=== PATIENT | male | born 1945 | race Caucasian/White ===

== ENCOUNTER 2022-02-25 17:59 | Emergency (ER) | payer OTHER, SELFPAY ==
--- NOTE | ~2022-02-25 | XR_ITS ---
EXAMINATION: CHEST AND LEFT RIBS, LEFT SHOULDER, LEFT HAND CLINICAL INFORMATION: Fall with pain COMPARISON: None TECHNIQUE: Single view chest with 4 additional views left RIBS, 4 views left shoulder, 3 views left hand FINDINGS: The heart and pulmonary vessels appear normal. Bibasilar atelectasis is seen. Degenerative changes are seen in the spine with biconvex thoracolumbar scoliosis. The ribs appear intact. No rib fractures. No pneumothorax. No significant bone, joint or soft tissue abnormality is seen involving the left shoulder. There are degenerative changes at the DIP joints in the hand. Minimal degenerative changes present at the first carpal metacarpal joint along with the radiocarpal joint. No fractures are seen. Vascular calcifications are present. XR/XR hand wrist LT IMPRESSION: No evidence of acute traumatic injury involving the chest, ribs, left shoulder or left hand. Degenerative changes in the hand as described above.
--- NOTE | ~2022-02-25 | XR_ITS ---
EXAMINATION: CHEST AND LEFT RIBS, LEFT SHOULDER, LEFT HAND CLINICAL INFORMATION: Fall with pain COMPARISON: None TECHNIQUE: Single view chest with 4 additional views left RIBS, 4 views left shoulder, 3 views left hand FINDINGS: The heart and pulmonary vessels appear normal. Bibasilar atelectasis is seen. Degenerative changes are seen in the spine with biconvex thoracolumbar scoliosis. The ribs appear intact. No rib fractures. No pneumothorax. No significant bone, joint or soft tissue abnormality is seen involving the left shoulder. There are degenerative changes at the DIP joints in the hand. Minimal degenerative changes present at the first carpal metacarpal joint along with the radiocarpal joint. No fractures are seen. Vascular calcifications are present. XR/XR ribs LT min 3V w CXR1V IMPRESSION: No evidence of acute traumatic injury involving the chest, ribs, left shoulder or left hand. Degenerative changes in the hand as described above.
--- NOTE | ~2022-02-25 | XR_ITS ---
EXAMINATION: CHEST AND LEFT RIBS, LEFT SHOULDER, LEFT HAND CLINICAL INFORMATION: Fall with pain COMPARISON: None TECHNIQUE: Single view chest with 4 additional views left RIBS, 4 views left shoulder, 3 views left hand FINDINGS: The heart and pulmonary vessels appear normal. Bibasilar atelectasis is seen. Degenerative changes are seen in the spine with biconvex thoracolumbar scoliosis. The ribs appear intact. No rib fractures. No pneumothorax. No significant bone, joint or soft tissue abnormality is seen involving the left shoulder. There are degenerative changes at the DIP joints in the hand. Minimal degenerative changes present at the first carpal metacarpal joint along with the radiocarpal joint. No fractures are seen. Vascular calcifications are present. XR/XR shoulder LT min 2V IMPRESSION: No evidence of acute traumatic injury involving the chest, ribs, left shoulder or left hand. Degenerative changes in the hand as described above.
--- NOTE | ~2022-02-25 | CT_ITS ---
EXAMINATION: CT CHEST, ABDOMEN AND PELVIS WITHOUT CONTRAST CLINICAL INFORMATION: Status post fall with left-sided chest wall pain and left upper quadrant/abdominal pain COMPARISON: No pertinent prior studies are available for comparison. TECHNIQUE: Multidetector volumetric imaging was performed from the thoracic inlet through the pubic symphysis without IV contrast. Sagittal and coronal reformatted images were obtained on the technologist's workstation. This CT examination was performed using dose optimization techniques as appropriate, variously including the following: *Automated exposure control *Adjustment of mA and/or kV according to patient size (this includes techniques or standardized protocols for targeted exams where dose is matched to indication/reason for exam; i.e. extremities or head) *Use of iterative reconstruction technique DLP: 931 mGy-cm FINDINGS: CHEST: Lung: A few punctate nodules/granulomas are seen. The lungs are otherwise clear without focal opacity or concerning nodule. Mediastinum: The heart size is normal. Coronary calcifications are present. The central vascular structures are unremarkable. No hilar or mediastinal lymphadenopathy. Pericardium/Pleura: No significant effusion. No pleural mass or thickening. Chest Wall/Axilla: Unremarkable. No chest wall hematoma or rib fractures are seen. ABDOMEN/PELVIS: Peritoneal Space: No significant free air or free fluid identified. Liver, Gallbladder, Biliary Tree: The liver is normal in size, shape, and attenuation. Multiple benign simple water density cysts are present in the liver. No focal worrisome solid hepatic lesion or biliary ductal dilatation is present. The gallbladder contains small layering gallstones without gallbladder wall thickening, or obvious pericholecystic inflammatory changes. Pancreas: Unremarkable Spleen: Unremarkable Adrenal Glands: Unremarkable Kidneys and Ureters: The right kidney is absent. The left kidney is large measuring 15.7 cm in greatest length. A large completely exophytic cyst arises from the upper pole the left kidney measuring 9.2 cm. Other smaller benign Bosniak class I cysts are present as well aerated no solid renal masses are seen. At the lower pole there is a nonobstructing 7 mm calculus seen which measures 560 Hounsfield units and is 15 cm from the posterior axillary line. No other stones are seen. No hydronephrosis. Bladder: Unremarkable Gastrointestinal Tract: The small and large bowel are unremarkable. The appendix is is not seen but there is no evidence of appendicitis. Abdominal Wall: Small left inguinal hernia containing only fat Lymph Nodes: No retroperitoneal lymphadenopathy. Vascular: The aorta appears unremarkable.. The IVC appears unremarkable. PELVIC VISCERA: There is moderate enlargement of the prostate. The seminal vesicles appear normal. OSSEUS STRUCTURES: Mild degenerative changes are noted throughout the spine. No bony destructive lesions are seen. CT/CT abdomen pelvis wo IV con IMPRESSION: 1. No evidence of an acute traumatic injury in the chest, abdomen and pelvis. 2. The right kidney is absent and left kidney is large with multiple Bosniak class I cysts which need no further imaging or follow-up there is a nonobstructing 7 mm calculus in the left kidney. 3. Moderate BPH 4. Cholelithiasis without cholecystitis 5. Multiple benign liver cysts. Fleischner guidelines were followed.
[2022-02-25 19:04] VITALS: BP 156/82; PULSE 73; RESP 18; TEMP 37; O2SAT 98; BMI 36.1
--- NOTE | 2022-02-25 19:10 | ECG_ITS ---
Test Reason : FALL Blood Pressure : / mmHG Vent. Rate : 080 BPM Atrial Rate : 080 BPM P-R Int : 232 ms QRS Dur : 098 ms QT Int : 372 ms P-R-T Axes : -06 -11 030 degrees QTc Int : 429 ms Sinus rhythm with 1st degree A-V block with occasional Premature ventricular complexes Otherwise normal ECG No previous ECGs available Referred By: Generic ED Physician Electronically Signed By:NATALIE VUONG MD
[2022-02-25 19:46] LABS: MANUAL DIFF FLAG NO
[2022-02-25 19:47] LABS: Basophils Absolute Auto 0.1 X10*3/uL (0.0-0.2); Basophils Percent Auto 0.8 % (0-2); Eosinophils Absolute Auto 0.3 X10*3/uL (0.0-0.4); Eosinophils Percent Auto 2.6 % (0-4); Hematocrit 51.2 % (42.0-52.0); Hemoglobin 16.7 g/dl (14.0-18.0); Imm Gran Abs Auto 0.12 X10*3/uL (0.00-0.03); Imm Gran Pct Auto 1.1 % (0.0-0.4); Lymphocytes Absolute Auto 2.6 X10*3/uL (1.2-4.9); Lymphocytes Percent Auto 24.4 % (20-40); Mean Corpuscular HGB Conc 32.6 g/dl (31.0-36.0); Mean Corpuscular Hemoglobin 30.4 pg (27.0-33.0); Mean Corpuscular Volume 93.1 fL (80.0-98.0); Mean Platelet Volume 9.9 fL (9.4-12.4); Monocytes Percent Auto 9.6 % (2-11); Neutrophils Absolute Auto 6.5 x10*3/uL (2.0-8.3); Neutrophils Percent Auto 61.5 % (45-73); Platelet Count 258 X10*3/uL (160-400); White Blood Count 10.5 X10*3/uL (4.8-10.8)
[2022-02-25 20:01] LABS: Alanine Aminotransferase 22 U/L (0-40); Albumin Level 3.7 g/dL (3.5-5.0); Alkaline Phosphatase 85 U/L (39-117); Anion Gap 13 (12-20); Aspartate Amino Transferase 22 U/L (5-37); Bilirubin Total 0.7 mg/dL (0.0-1.0); Blood Urea Nitrogen 18 mg/dL (9-16); Calcium 9.3 mg/dL (8.4-10.2); Carbon Dioxide 23 mmol/L (22-29); Chloride 107 mmol/L (96-108); Creatinine Clr Calc Pharmacy 52.4; Estimated Glomerular Filt Rate 45; Glucose Random 120 mg/dL (60-115); Sodium 139 mmol/L (135-145); Total Protein 6.9 g/dL (6.5-8.0)
[2022-02-25 20:08] LABS: Troponin-I High Sensitivity 8.8 ng/L (<3.5-35.0)
[2022-02-25] MEDS: 0.9 % Sodium Chloride 500 ML 900 ML IV (20:38)
[2022-02-25 20:59] VITALS: BP 191/86; PULSE 83; RESP 18; TEMP 35.9; O2SAT 95
--- NOTE | 2022-02-25 21:08 | ED.FALL ---
HPI - Fall General Chief Complaint: Fall Stated Complaint: fall/rib pain/arm INJ Time Seen by Provider: 02/25/22 20:12 Source: patient Mode of arrival: ambulatory Limitations: no limitations History of Present Illness HPI Narrative: 76-year-old male with a history of high blood pressure, congestive heart failure, renal cancer status post nephrectomy with a solitary kidney with preserve renal function here with reports of trip and fall. Patient tells me he was walking home from dinner when he tripped falling on his left side. He denies hitting his head or loss of consciousness. Patient tells me that he struck his left ribs and abdomen. He also caught himself with his left upper extremity. He denies neck pain, back pain, headache, vomiting, vision changes. Patient is not on any anticoagulation Related Data Previous Rx's Medication Instructions Recorded lidocaine 5 % topical patch 1 patch TOPICAL DAILY #15 ea 02/25/22 (Lidoderm) oxycodone 5 mg tablet 5 mg PO Q8H PRN #5 tab 02/25/22 Allergies Allergy/AdvReac Type Severity Reaction Status Date / Time No Known Allergies Allergy Verified 02/25/22 19:08 Review of Systems Review of Systems: Yes all other systems are reviewed and are negative Constitutional: Constitutional: Reports no additional constitutional complaints, Denies body ache(s), Denies chills, Denies fever(s), Denies headache(s) and Denies weakness Eyes: Eyes: Reports no additional eye complaints and Denies change in vision ENT: Reports system reviewed and no additional complaints, except as documented, Denies dizziness, Denies headache(s), Denies nasal congestion, Denies nasal discharge and Denies neck pain Cardiovascular: Cardiovascular: Reports no additional cardiovascular complaints, Reports chest pain, Denies leg edema and Denies dyspnea Respiratory: Respiratory: Reports no additional respiratory complaints, Denies cough and Denies dyspnea Gastrointestinal: Gastrointestinal: Reports no additional gastrointestinal complaints, Reports abdominal pain, Denies diarrhea, Denies nausea and Denies vomiting Genitourinary: Genitourinary: Denies urinary incontinence Musculoskeletal: Musculoskeletal: Reports no additional musculoskeletal complaints, Denies back pain, Denies arthralgias, Denies joint swelling, Denies neck pain, Denies numbness and Denies tingling Integumentary/Breasts: Skin/Breast: Reports system reviewed and no additional complaints, except as docu and Denies rash Neurologic: Reports system reviewed and no additional complaints, except as documented, Denies Abnormal speech present, Denies dizziness, Denies headache(s), Denies numbness, Denies tingling and Denies weakness PMFSH Past Medical History Attestation statement: The following information was validated with the patient. Source: old records reviewed and nursing notes reviewed Social History Social History Advance Directives: No Advance Directives Information Provided: No Physical Exam Vital Signs: Vital Signs: Last Vital Signs Temp 96.6 F L 02/25/22 20:59 Pulse 74 02/25/22 22:14 Resp 16 02/25/22 22:14 BP 156/87 H 02/25/22 22:14 Pulse Ox 99 02/25/22 22:14 BMI result Body Mass Index 36.1 Const: General: cooperative, healthy appearing, comfortable and no acute distress Orientation/consciousness: patient oriented x3 Limitations: no limitations HEENT: Head: Yes normal to inspection Ears: hearing grossly normal bilaterally and TM's normal bilaterally General nose exam: Normal external nose present Face and sinus: Yes normal facial exam Mouth: Normal oral and palatal mucosa present Throat: Yes posterior oropharynx normal and Yes tonsils normal Eyes: General: appearance normal, both eyes and all related structures Pupils: Equal, round and reactive pupils present Neck: Other: No cervical midline tenderness, step-offs deformities Neck: Yes normal visual inspection and Yes full ROM Chest: Chest palpation & inspection: normal inspection of the chest and tenderness (To the left ribs there is tenderness. There is no ecchymosis or crepitus) Resp: Effort & Inspection: normal respiratory effort Auscultation: clear to auscultation bilaterally Cardio: Rate: regular rate Rhythm: regular rhythm Peripheral pulses: Peripheral pulses 2+ throughout GI: Inspection: Yes normal to inspection Palpation (GI): Soft to palpation and Tenderness to palpation present (GI) (Left upper quadrant tenderness) Auscultation: normal bowel sounds Back/Spine/Pelvis: Thoracic/Lumbar Spine: thoracic and lumbar spine normal to inspection Skin: General skin exam: no rashes or lesions noted Neuro: General: patient oriented x3, moves all extremities, no focal motor deficits and normal sensation to monofilament Cranial nerves: Yes CN's II-XII intact bilaterally, Yes Equal, round and reactive pupils present, Yes Bilaterally intact EOM present, Yes Nystagmus not present, Yes Normal facial strength present and Yes Midline tongue present Cognition (Neuro): normal cognition Speech: No Abnormal speech present Gait exam (Neuro): Normal gait present Motor exam (neuro): 5/5 motor strength present throughout Sensory Exam: Normal double simultaneous stimulation for sensation Extrem: Other: Tenderness to the left dorsal wrist with full range of motion Tenderness to the left anterior shoulder with full range of motion. Neurovascularly intact distally. General: Yes normal to inspection Course Course Course Narrative: 76-year-old male here with reports of left ribs and abdomen pain after mechanical fall just prior to arrival. X-rays were ordered from triage and are unavailable for review. Patient also had complaints of left upper extremity pain after the fall. It is unclear why but the patient had labs ordered from triage which show a BUN of 18 and a creatinine of 1.54. No previous labs for comparison. Patient denies any underlying history of chronic kidney disease. He does have a solitary kidney. Will place PIV and give 500 mL of normal saline due to underlying congestive heart failure history. Will plan to recheck patient's main creatinine after this. Patient also had a troponin which was done at triage unclear why is he denied any pre fall symptoms of chest pain or shortness of breath palpitations. His troponin was 8.8 which [address] it in the indeterminate range. He has no complaints. His EKG shows no ischemic changes. Plan to repeat. Will check CT abdomen and pelvis and CT chest Reevaluation(s) Reevaluation #1: CT chest/abdomen/pelvis show no acute finding. Gallstones but no evidence of acute cholecystitis. No right upper quadrant pain on exam. Rib x-rays are negative. Hand, wrist and shoulder x-ray show no acute finding. Patient was informed of his imaging results. His repeat creatinine is 1.50 and his BUN is 19. We have no previous to compare to so I do not know what his baseline is. Therefore informed the patient of his labs. He tells me he has a appointment tomorrow with his urologist and he will have repeat labs done. I instructed him that he should drink lots of fluids. He should avoid any anti-inflammatories until his repeat labs are done. His repeat troponin is flat. Reviewed worrisome signs and symptoms of when to return to the emergency department. Comfortable discharge home. Time: 23:45 MDM - Fall MDM Narrative Medical decision making narrative: Contusion, fracture, intra-abdominal injury Medical Records Attestation: I reviewed the patient's medical records. Lab Data Attestation: I reviewed the patient's lab results. Result diagrams: 02/25/22 19:38 02/25/22 22:37 Labs: Lab Results 02/25/22 02/25/22 02/25/22 Range/Units 19:38 19:38 19:38 WBC 10.5 (4.8-10.8) X10*3/uL RBC 5.50 (4.60-5.80) X10*6/uL Hgb 16.7 (14.0-18.0) g/dl Hct 51.2 (42.0-52.0) % MCV 93.1 (80.0-98.0) fL MCH 30.4 (27.0-33.0) pg MCHC 32.6 (31.0-36.0) g/dl RDW 14.0 (11.0-16.0) % Plt Count 258 (160-400) X10*3/uL MPV 9.9 (9.4-12.4) fL Immature Gran % (Auto) 1.1 H (0.0-0.4) % Neut % (Auto) 61.5 (45-73) % Lymph % (Auto) 24.4 (20-40) % [place] % (Auto) 9.6 (2-11) % Eos % (Auto) 2.6 (0-4) % Baso % (Auto) 0.8 (0-2) % Lymph # (Auto) 2.6 (1.2-4.9) X10*3/uL [place] # (Auto) 1.0 (0.1-1.2) X10*3/uL Eos # (Auto) 0.3 (0.0-0.4) X10*3/uL Baso # (Auto) 0.1 (0.0-0.2) X10*3/uL Abs Immat Gran (auto) 0.12 H (0.00-0.03) X10*3/uL Absolute Neuts (auto) 6.5 (2.0-8.3) x10*3/uL Absolute Nucleated RBC 0.000 (0.0-0.012) X10*3/uL Nucleated RBC % (auto) 0.0 (0.0-0.2) /100WBC Sodium 139 (135-145) mmol/L Potassium 4.0 (3.3-5.1) mmol/L Chloride 107 (96-108) mmol/L Carbon Dioxide 23 (22-29) mmol/L Anion Gap 13 (12-20) BUN 18 H (9-16) mg/dL Creatinine 1.52 H (0.5-1.4) mg/dL Estim Creat Clear Calc 52.4 Estimated GFR 45 Random Glucose 120 H (60-115) mg/dL Calcium 9.3 (8.4-10.2) mg/dL Total Bilirubin 0.7 (0.0-1.0) mg/dL AST 22 (5-37) U/L ALT 22 (0-40) U/L Alkaline Phosphatase 85 (39-117) U/L Troponin I High Sens 8.8 (<3.5-35.0) ng/L Total Protein 6.9 (6.5-8.0) g/dL Albumin 3.7 (3.5-5.0) g/dL 02/25/22 02/25/22 Range/Units 22:37 22:37 WBC (4.8-10.8) X10*3/uL RBC (4.60-5.80) X10*6/uL Hgb (14.0-18.0) g/dl Hct (42.0-52.0) % MCV (80.0-98.0) fL MCH (27.0-33.0) pg MCHC (31.0-36.0) g/dl RDW (11.0-16.0) % Plt Count (160-400) X10*3/uL MPV (9.4-12.4) fL Immature Gran % (Auto) (0.0-0.4) % Neut % (Auto) (45-73) % Lymph % (Auto) (20-40) % [place] % (Auto) (2-11) % Eos % (Auto) (0-4) % Baso % (Auto) (0-2) % Lymph # (Auto) (1.2-4.9) X10*3/uL [place] # (Auto) (0.1-1.2) X10*3/uL Eos # (Auto) (0.0-0.4) X10*3/uL Baso # (Auto) (0.0-0.2) X10*3/uL Abs Immat Gran (auto) (0.00-0.03) X10*3/uL Absolute Neuts (auto) (2.0-8.3) x10*3/uL Absolute Nucleated RBC (0.0-0.012) X10*3/uL Nucleated RBC % (auto) (0.0-0.2) /100WBC Sodium 141 (135-145) mmol/L Potassium 4.2 (3.3-5.1) mmol/L Chloride 109 H (96-108) mmol/L Carbon Dioxide 25 (22-29) mmol/L Anion Gap 11 L (12-20) BUN 19 H (9-16) mg/dL Creatinine 1.50 H (0.5-1.4) mg/dL Estim Creat Clear Calc 53.1 Estimated GFR 46 Random Glucose 116 H (60-115) mg/dL Calcium 8.9 (8.4-10.2) mg/dL Total Bilirubin (0.0-1.0) mg/dL AST (5-37) U/L ALT (0-40) U/L Alkaline Phosphatase (39-117) U/L Troponin I High Sens 8.9 (<3.5-35.0) ng/L Total Protein (6.5-8.0) g/dL Albumin (3.5-5.0) g/dL Imaging Data Left hand/wrist/shoulder/ribs xray: Attestation: I personally reviewed and interpreted this imaging study as follows: Radiologist's impression: FINDINGS: The heart and pulmonary vessels appear normal. Bibasilar atelectasis is seen. Degenerative changes are seen in the spine with biconvex thoracolumbar scoliosis. The ribs appear intact. No rib fractures. No pneumothorax. No significant bone, joint or soft tissue abnormality is seen involving the left shoulder. There are degenerative changes at the DIP joints in the hand. Minimal degenerative changes present at the first carpal metacarpal joint along with the radiocarpal joint. No fractures are seen. Vascular calcifications are present.? XR/XR hand wrist LT IMPRESSION: No evidence of acute traumatic injury involving the chest, ribs, left shoulder or left hand. Degenerative changes in the hand as described above.? CT scan - abdomen: Attestation: I personally reviewed and interpreted this imaging study as follows: Radiologist's impression: ABDOMEN/PELVIS: Peritoneal Space: No significant free air or free fluid identified. Liver, Gallbladder, Biliary Tree: The liver is normal in size, shape, and attenuation. Multiple benign simple water density cysts are present in the liver. No focal worrisome solid hepatic lesion or biliary ductal dilatation is present. The gallbladder contains small layering gallstones without? gallbladder wall thickening, or obvious pericholecystic inflammatory changes. Pancreas: Unremarkable Spleen: Unremarkable Adrenal Glands: Unremarkable Kidneys and Ureters: The right kidney is absent. The left kidney is large measuring 15.7 cm in greatest length. A large completely exophytic cyst arises from the upper pole the left kidney measuring 9.2 cm. Other smaller benign Bosniak class I cysts are present as well aerated no solid renal masses are seen. At the lower pole there is a nonobstructing 7 mm calculus seen which measures 560 Hounsfield units and is 15 cm from the posterior axillary line. No other stones are seen. No hydronephrosis. Bladder: Unremarkable Gastrointestinal Tract: The small and large bowel are unremarkable. The appendix is is not seen but there is no evidence of appendicitis. Abdominal Wall: Small left inguinal hernia containing only fat Lymph Nodes: No retroperitoneal lymphadenopathy. Vascular: The aorta appears unremarkable.. The IVC appears unremarkable. PELVIC VISCERA: There is moderate enlargement of the prostate. The seminal vesicles appear normal. OSSEUS STRUCTURES: Mild degenerative changes are noted throughout the spine. No bony destructive lesions are seen. CT scan - chest: Attestation: I personally reviewed and interpreted this imaging study as follows: Radiologist's impression: CHEST: Lung: A few punctate nodules/granulomas are seen. The lungs are otherwise clear without focal opacity or concerning nodule. Mediastinum: The heart size is normal. Coronary calcifications are present. The central vascular structures are unremarkable. No hilar or mediastinal lymphadenopathy. Pericardium/Pleura: No significant effusion. No pleural mass or thickening. Chest Wall/Axilla: Unremarkable. No chest wall hematoma or rib fractures are seen ECG Data Attestation: I personally reviewed and interpreted this ECG as follows: ECG interpretation date: 02/25/22 ECG interpretation time: 19:12 Interpretation: Sinus rhythm with a first-degree AV block with occasional PVCs with a rate of 80, normal QRS, normal QT Discharge Plan Discharge Clinical Impression: KIMBER (acute kidney injury), Chest wall contusion, Contusion of arm, left, Left wrist sprain Patient Disposition: Home, Self-Care Instructions: Acute Kidney Injury (DC), Contusion in Adults (ED), Wrist Sprain (ED) Additional Instructions: Have your kidney function checked within one week. Your BUN was 19 and your creatinine 1.50 Ice to the affected areas NO motrin until repeat kindey function. Tylenol for pain or oxycodone for severe pain Prescriptions: New oxycodone 5 mg tablet 5 mg PO Q8H PRN (Reason: pain) Qty: 5 0RF lidocaine [Lidoderm] 5 % adhesive patch,medicated 1 patch topical DAILY Qty: 15 0RF Rx Instructions: leave on most painful area for up to 12 hrs Referrals: Fannie Nelson MD [Primary Care Provider] - 5 days (For repeat kidney function ) Interventions: ED Discharge Assessment Last Done: 02/25/22 23:58 Discharge Date/Time: 02/25/22 23:59
[2022-02-25 21:29] VITALS: RESP 20
[2022-02-25] MEDS: ondansetron HCL 4 MG/2 ML VIAL IVPUSH (21:29)
[2022-02-25] MEDS: Morphine Sulfate 4 MG/ML CARTRIDGE IVPUSH (21:29)
[2022-02-25 22:14] VITALS: BP 156/87; PULSE 74; RESP 16; O2SAT 99
[2022-02-25 22:55] LABS: Anion Gap 11 (12-20); Blood Urea Nitrogen 19 mg/dL (9-16); Calcium 8.9 mg/dL (8.4-10.2); Carbon Dioxide 25 mmol/L (22-29); Chloride 109 mmol/L (96-108); Creatinine Clr Calc Pharmacy 53.1; Estimated Glomerular Filt Rate 46; Glucose Random 116 mg/dL (60-115); Potassium 4.2 mmol/L (3.3-5.1); Sodium 141 mmol/L (135-145)
[2022-02-25 23:13] LABS: Troponin-I High Sensitivity 8.9 ng/L (<3.5-35.0)
[2022-02-25] MEDS: oxyCODONE HCl Immed Release 5 MG TABLET PO (23:55)
== END 2022-02-25 23:59 | disposition home or self-care (01) ==
PROVIDERS: Nurse Practitioner Family; Emergency Provider Emergency Medicine; PCP Internal Medicine
DX: S20.212A Contusion of left front wall of thorax, initial encounter (principal); S40.022A Contusion of left upper arm, initial encounter; S63.502A Unspecified sprain of left wrist, initial encounter; N17.9 Acute kidney failure, unspecified; R10.12 Left upper quadrant pain; I50.9 Heart failure, unspecified; Z90.5 Acquired absence of kidney; W01.0XXA Fall on same level from slipping, tripping and stumbling without subsequent striking against object, initial encounter; Y93.01 Activity, walking, marching and hiking; Y92.9 Unspecified place or not applicable; Y99.9 Unspecified external cause status
CPT/HCPCS: 36415; 71101; 71250; 73030; 73110; 73130; 74176; 80048; 80053; 84484; 85025; 93005; 96374; 96375; 99284; J2270; J2405

== ENCOUNTER 2024-01-19 14:53 | Emergency (ER) | payer OTHER, SELFPAY ==
--- NOTE | ~2024-01-19 | CT_ITS ---
EXAMINATION: CT CHEST WITHOUT CONTRAST CLINICAL INFORMATION: Pain. Injury. COMPARISON: Previous chest CT February 2022 TECHNIQUE: Multidetector volumetric CT imaging of the chest was done. Axial MIP volume rendering provided. Sagittal and coronal reformatted images were obtained. This CT examination was performed using dose optimization techniques as appropriate, variously including the following: *Automated exposure control *Adjustment of mA and/or kV according to patient size (this includes techniques or standardized protocols for targeted exams where dose is matched to indication/reason for exam; i.e. extremities or head) *Use of iterative reconstruction technique DLP: 514 mGy-cm FINDINGS: LUNGS: Small calcified left lower lobe nodule probably representing a calcified granuloma measuring 3 mm. Lungs otherwise clear. MEDIASTINUM: The mediastinum is normal. CORONARY ARTERY CALCIFICATION: Present PLEURA: There is no pleural effusion. No pleural mass or thickening. No pneumothorax. AXILLA: No lymphadenopathy. UPPER ABDOMEN: Liver and left renal cysts. Gallstones.. OSSEOUS STRUCTURES: Degenerative changes of the spine and scoliosis. Old left lower anterior rib fractures. No acute fracture. CT/CT chest wo IV con IMPRESSION: No acute findings. Fleischner guidelines were followed.
--- NOTE | ~2024-01-19 | XR_ITS ---
EXAMINATION: XR SHOULDER, LEFT CLINICAL INFORMATION: Pain. Injury. COMPARISON: Previous x-ray February 2022. TECHNIQUE: AP external rotation, Grashey, scapular Y, and axillary views of the left shoulder. FINDINGS: Bone alignment is normal. No fracture or dislocation. Normal glenohumeral joint. Mild arthritis at the acromioclavicular joint. Soft tissues are unremarkable. XR/XR shoulder LT min 2V IMPRESSION: No fracture or dislocation.
--- NOTE | ~2024-01-19 | CT_ITS ---
EXAMINATION: CT HEAD WITHOUT CONTRAST CT CERVICAL SPINE WITHOUT CONTRAST CLINICAL INFORMATION: Injury. Pain. COMPARISON: None. TECHNIQUE: Imaging was performed from the skull base to vertex without intravenous administration of contrast. In addition, helical noncontrast CT imaging was acquired through the cervical spine and source images were reviewed along with axial reconstructions and sagittal and coronal MPRs. [This CT examination was performed using dose optimization techniques as appropriate, variously including the following: *Automated exposure control *Adjustment of mA and/or kV according to patient size (this includes techniques or standardized protocols for targeted exams where dose is matched to indication/reason for exam; i.e. extremities or head) *Use of iterative reconstruction technique] DLP: 10.25+714.48+517.28 mGy-cm FINDINGS: HEAD: No intracranial mass, hemorrhage, or midline shift is visualized. There is generalized global volume loss. There is moderate prominence of the ventricles and the sulci . There is mild hypodensity of the periventricular white matter due to chronic small vessel ischemic disease. There are vascular calcifications of the internal carotid arteries bilaterally. No extra-axial collections are identified. Small dependent air-fluid level in the left maxillary sinus. Mastoid air cells and middle ear cavities are normally aerated. CERVICAL SPINE: There is no evidence of acute cervical spine fracture. Vertebral bodies remain normal in height. Cervical vertebrae have normal alignment. There is multilevel degenerative spondylosis of the cervical spine with disc height narrowing and endplate spurs and facet joint arthrosis No pre- or paravertebral soft tissue abnormality is identified. Limited assessment of the lung apices is unremarkable. Associated with the posterior skin at about the level of C3-C4 is a cyst measuring 1.5 cm. Sagittal image 38/ series 23. CT/CT cervical spine wo IV con IMPRESSION: 1. No acute intracranial pathology. 2. No CT evidence of acute cervical spine fracture or traumatic subluxation
--- NOTE | 2024-01-19 15:01 | ED_ITS ---
HPI - General Adult General Chief complaint: Fall Stated complaint: FALL,R RIB PAIN PER EMS Time Seen by Provider: 01/19/24 15:01 Source: patient and EMS Mode of arrival: EMS Limitations: no limitations History of Present Illness HPI narrative: Patient is a 78 year old assigned male at with a history of HTN presenting to the emergency department today with left sided shoulder and rib pain after a trip and fall. Patient states that he was out walking in a park when he tripped on a tree root and landed on his left side. Patient denies hitting his head or any loss of consciousness. Patient denies any dizziness, lightheadedness, abdominal pain, nausea, vomiting, fever, chills, blurry vision, double vision, loss of vision, chest pain, difficulty breathing, shortness of breath, back pain, night sweats, pain with urination, increased urinary frequency, increased urinary urgency, blood in his urine or stool, syncope or a near syncopal episode, bowel incontinence, bladder incontinence, bowel retention, bladder retention, or any other complaints at this time. Onset (ago): minute(s) Location: left (ribs and shoulder) Severity: mild Severity scale (1-10): 4 Pain Consistency: constant Relieving factors: none Exacerbating factors: movement Associated symptoms: denies other symptoms Treatments prior to arrival: none Related Data Previous Rx's ?Medication ?Instructions ?Recorded lidocaine 5 % topical patch 1 patch topical DAILY #15 ea 02/25/22 (Lidoderm) oxycodone 5 mg tablet 5 mg PO Q8H PRN pain #5 tabs 02/25/22 hydrocodone 5 mg-acetaminophen 325 1 tab PO Q6H PRN pain #7 tabs 01/19/24 mg tablet Allergies Allergy/AdvReac Type Severity Reaction Status Date / Time No Known Allergies Allergy Verified 01/19/24 15:11 Review of Systems Constitutional: Constitutional: Reports no additional constitutional complaints, Denies chills, Denies fever(s) and Denies night sweats Eyes: Eyes: Reports no additional eye complaints, Denies blurry vision, Denies change in vision, Denies diplopia, Denies eye discharge, Denies loss of vision and Denies eye pain ENT: Denies dizziness Cardiovascular: Cardiovascular: Reports no additional cardiovascular complaints, Denies chest pain, Denies lightheadedness, Denies Loss of Consciousness and Denies dyspnea Respiratory: Respiratory: Reports no additional respiratory complaints and Denies dyspnea Gastrointestinal: Gastrointestinal: Reports no additional gastrointestinal complaints, Denies abdominal pain, Denies melena, Denies hematochezia, Denies change in bowel habits and Denies change in stool character Genitourinary: Genitourinary: Reports no additional male genitourinary complaints, Denies hematuria, Denies oliguria, Denies difficulty urinating, Denies dysuria, Denies urinary frequency, Denies urinary hesitancy, Denies urinary incontinence and Denies urinary urgency Musculoskeletal: Musculoskeletal: Reports no additional musculoskeletal complaints, Denies numbness and Denies tingling Comments: left shoulder pain, left rib pain Neurologic: Denies dizziness, Denies loss of vision, Denies numbness and Denies tingling Psychiatric: Psychiatric: Reports no additional psychiatric complaints Endocrine: Endocrine: Reports no additional endocrine complaints Hematologic/Lymphatic: Hematologic/Lymphatic: Reports no additional hematologic/lymphatic complaints Allergic/Immunologic: Allergic/Immunologic: Reports no additional allergic/immunologic complaints PMFSH Past Medical History Attestation statement: The following information was validated with the patient. Source: old records reviewed and nursing notes reviewed Social History Social History Advance Directives: No Advance Directives Information Provided: No Do you have a plan to hurt others: No Plan Physical Exam ED Vital Signs: Vital Signs - 24 hr 01/19/24 15:07 01/19/24 17:36 Temperature 98.2 F 97.9 F Pulse Rate 76 77 Respiratory Rate 20 18 Blood Pressure 167/81 H 150/71 H Pulse Oximetry 100 98 Oxygen Delivery Method Room Air Room Air BMI result Body Mass Index 36.8 Const General: cooperative, no acute distress, alert and awake Nutritional Appearance: well nourished Orientation/consciousness: patient oriented x3 Limitations: no limitations HENMT Head: Yes normal to inspection and Yes atraumatic Ears: hearing grossly normal bilaterally and external ears normal General nose exam: Normal external nose present, no nasal discharge noted and no epistaxis Face and sinus: Yes normal facial exam, No abrasion and No laceration Mouth: Normal oral and palatal mucosa present, no drooling and no muffled voice Eyes General: appearance normal, both eyes and all related structures Periorbital: periorbital findings normal Eyelids: Yes eyelids normal Conjunctivae: conjunctivae normal Pupils: Equal, round and reactive pupils present EOM: EOMs intact bilaterally Neck Neck: Yes normal visual inspection, Yes full ROM and Yes no lymphadenopathy Chest Other: pain with palpation of the left ribs Chest palpation & inspection: normal inspection of the chest Resp Effort & Inspection: normal respiratory effort and able to speak in complete sentences GI Inspection: Yes normal to inspection Neuro General: patient oriented x3 and moves all extremities Cranial nerves: Yes Equal, round and reactive pupils present Cognition (Neuro): normal cognition Motor exam (neuro): 5/5 motor strength present throughout Sensory Exam: Normal double simultaneous stimulation for sensation Coordination: [id number] test normal Extrem General: Yes normal to inspection, Yes full ROM and Yes capillary refill normal Psych Appearance: grossly normal Mental Status: mental status grossly normal Affect: normal affect Attitude: cooperative Thought process: Normal thought process present Thought content: Normal thought content present Insight: Good insight present (Psych) Medications Administered Discontinued Medications Generic Name Dose Route Start Last Admin Trade Name Freq PRN Reason Stop Dose Admin Acetaminophen 975 mg 01/19/24 15:03 01/19/24 15:15 Acetaminophen 325 Mg Tablet PO 01/19/24 15:04 975 mg ONCE ONE Administration Oxycodone HCl 5 mg 01/19/24 16:39 01/19/24 16:48 Oxycodone Hcl Immed Release 5 Mg Tablet PO 01/19/24 16:40 5 mg ONCE ONE Administration Medical Decision Making Medical Decision Making [facility] Narrative: Patient is a 78 year old assigned male at with a history of HTN presenting to the emergency department today with left shoulder and left rib pain after a trip and fall. Patient's physical exam was as noted in the physical exam portion of this note. Patient's left shoulder x-ray showed no acute process. Patient's CT chest, head, and c-spine showed no acute process. I explained my physical exam findings as well as all test results to the patient. I answered all questions asked by the patient. I stressed the importance of the patient taking his medication as prescribed. I stressed the importance of the patient taking quality deep breaths. I stressed the importance of the patient following up with his primary care provider. I stressed the importance of the patient returning to the emergency department immediately if his symptoms were to worsen or if he were to develop any dizziness, shortness of breath, difficulty breathing, chest pain, blurry vision, loss of vision, nausea, vomiting, abdominal pain, fever, chills, back pain, or any other complaints. Patient verbalized agreement and understanding with this treatment plan and discharge. Differential Diagnosis Differential Diagnoses: The differential diagnosis associated with the presentation includes Left rib pain Left shoulder pain Trip and fall Mechanical fall Shoulder sprain Shoulder strain Shoulder contusion Chest wall contusion Rib contusion Rib fracture Admission/Observation Consideration of admission/observation: Escalation of care including admission/observation considered Patient would have been admitted to the hospital had his work up had any findings where hospital admission was appropriate and his clinical presentation warranted hospital admission. Independent Interpretation I performed an independent interpretation of an: Plain X-Ray and CT Scan Interpretation: My interpretation is in agreement with the radiologist's impression of these imaging studies. EXAMINATION: CT HEAD WITHOUT CONTRAST CT CERVICAL SPINE WITHOUT CONTRAST CLINICAL INFORMATION: Injury. Pain. COMPARISON: None. TECHNIQUE: Imaging was performed from the skull base to vertex without intravenous administration of contrast. In addition, helical noncontrast CT imaging was acquired through the cervical spine and source images were reviewed along with axial reconstructions and sagittal and coronal MPRs. [This CT examination was performed using dose optimization techniques as appropriate, variously including the following: *Automated exposure control *Adjustment of mA and/or kV according to patient size (this includes techniques or standardized protocols for targeted exams where dose is matched to indication/reason for exam; i.e. extremities or head) *Use of iterative reconstruction technique] DLP: 10.25+714.48+517.28 mGy-cm FINDINGS: HEAD: No intracranial mass, hemorrhage, or midline shift is visualized. There is generalized global volume loss. There is moderate prominence of the ventricles and the sulci . There is mild hypodensity of the periventricular white matter due to chronic small vessel ischemic disease. There are vascular calcifications of the internal carotid arteries bilaterally. No extra-axial collections are identified. Small dependent air-fluid level in the left maxillary sinus. Mastoid air cells and middle ear cavities are normally aerated. CERVICAL SPINE: There is no evidence of acute cervical spine fracture. Vertebral bodies remain normal in height. Cervical vertebrae have normal alignment. There is multilevel degenerative spondylosis of the cervical spine with disc height narrowing and endplate spurs and facet joint arthrosis No pre- or paravertebral soft tissue abnormality is identified. Limited assessment of the lung apices is unremarkable. Associated with the posterior skin at about the level of C3-C4 is a cyst measuring 1.5 cm. Sagittal image 38/[address]/CT head/brain wo IV con IMPRESSION: 1. No acute intracranial pathology. 2. No CT evidence of acute cervical spine fracture or traumatic subluxation Dictated By: Saul Ambrosio MD Signed By: Electronically signed by Saul Ambrosio MD 01/19/24 1710 EXAMINATION: CT CHEST WITHOUT CONTRAST CLINICAL INFORMATION: Pain. Injury. COMPARISON: Previous chest CT February 2022 TECHNIQUE: Multidetector volumetric CT imaging of the chest was done. Axial MIP volume rendering provided. Sagittal and coronal reformatted images were obtained. This CT examination was performed using dose optimization techniques as appropriate, variously including the following: *Automated exposure control *Adjustment of mA and/or kV according to patient size (this includes techniques or standardized protocols for targeted exams where dose is matched to indication/reason for exam; i.e. extremities or head) *Use of iterative reconstruction technique DLP: 514 mGy-cm FINDINGS: LUNGS: Small calcified left lower lobe nodule probably representing a calcified granuloma measuring 3 mm. Lungs otherwise clear. MEDIASTINUM: The mediastinum is normal. CORONARY ARTERY CALCIFICATION: Present PLEURA: There is no pleural effusion. No pleural mass or thickening. No pneumothorax. AXILLA: No lymphadenopathy. UPPER ABDOMEN: Liver and left renal cysts. Gallstones.. OSSEOUS STRUCTURES: Degenerative changes of the spine and scoliosis. Old left lower anterior rib fractures. No acute fracture. CT/CT chest wo IV con IMPRESSION: No acute findings. Fleischner guidelines were followed Dictated By: Leslie Ellison MD Signed By: Electronically signed by Leslie Ellison MD 01/19/24 7708 Radiology Impression Discussion of test interpretation with radiology: I have reviewed the radiologist's reading. Independent Historian Clinical information obtained from an independent historian. History obtained from or confirmed by: EMS (EMS provided additional history and confirmed the history provided by the patient.) Prescription Management I considered prescription management with: Pain Medication (patient prescribed pain medication) Chronic Conditions Patient?s care impacted by: Hypertension Critical Care Time Critical Care Time Critical Care Time: Yes Total Critical Care Time: 38 Attestation: I spent 38 minutes of Critical Care Time with this patient. This does not include time spent on separately reported billable procedures. Discharge Plan Discharge Clinical Impression: Fall, Contusion of rib, Acute shoulder pain Patient Disposition: Home, Self-Care Instructions: Fall Prevention (ED), Shoulder Pain (ED), Rib Contusion (ED) Prescriptions: New hydrocodone-acetaminophen 5-325 mg tablet 1 tab PO Q6H PRN (Reason: pain) Qty: 7 0RF Rx Instructions: Partial Fill upon patient request. No Action oxycodone 5 mg tablet 5 mg PO Q8H PRN (Reason: pain) Qty: 5 0RF lidocaine [Lidoderm] 5 % adhesive patch,medicated 1 patch topical DAILY Qty: 15 0RF Rx Instructions: leave on most painful area for up to 12 hrs Referrals: Fannie Nelson MD [Primary Care Provider] - Interventions: ED Discharge Assessment Last Done: 01/19/24 17:36 Discharge Date/Time: 01/19/24 17:38 Print Language: Wolof
[2024-01-19 15:07] VITALS: BP 140/100; BP 167/81; PULSE 76; PULSE 90; RESP 20; TEMP 36.8; O2SAT 100; O2SAT 98; BMI 36.8
[2024-01-19] MEDS: Acetaminophen 325 MG TABLET 975 MG PO (15:15)
[2024-01-19] MEDS: oxyCODONE HCl Immed Release 5 MG TABLET PO (16:48)
[2024-01-19 17:36] VITALS: BP 150/71; PULSE 77; RESP 18; TEMP 36.6; O2SAT 98
== END 2024-01-19 17:38 | disposition home or self-care (01) ==
PROVIDERS: Emergency Provider Emergency Medicine; PCP Internal Medicine
DX: S20.212A Contusion of left front wall of thorax, initial encounter (principal); M25.512 Pain in left shoulder; I10 Essential (primary) hypertension; W01.0XXA Fall on same level from slipping, tripping and stumbling without subsequent striking against object, initial encounter; Y93.01 Activity, walking, marching and hiking; Y92.830 Public park as the place of occurrence of the external cause; Y99.9 Unspecified external cause status
CPT/HCPCS: 70450; 71250; 72125; 73030; 99283; 99284